=== PATIENT | female | born 1985 | race Native Hawaiian/Other Pacific Islander ===

== ENCOUNTER 2022-01-17 14:09 | Emergency (ER) | payer OTHER ==
[2022-01-17 16:59] LABS: PLATELET COUNT 305 K/uL (152-353)
[2022-01-17 17:12] LABS: PARTIAL THROMBOPLASTIN TIME 25.7 SECONDS (24.5-33.6)
[2022-01-17 17:21] LABS: POTASSIUM 4.2 mmol/L (3.6-5.2)
== END 2022-01-17 18:00 | disposition home or self-care (01) ==
LOC: ED 14:09
PROVIDERS: Family Medicine
DX: N39.0 Urinary tract infection, site not specified (principal); R10.84 Generalized abdominal pain; F15.10 Other stimulant abuse, uncomplicated; F17.210 Nicotine dependence, cigarettes, uncomplicated
CPT/HCPCS: 80053; 80307; 81000; 81025; 82150; 83690; 85027; 85610; 85730; 87077; 87086; 87088; 87186; 96372; 99283; J0696; J1885